=== PATIENT | female | born 1975 | race Caucasian/White ===

== ENCOUNTER 2017-04-17 19:32 | Emergency (ER) | payer OTHER ==
[~2017-04-17] VITALS: Ht 152.4 cm; Wt 71.7 kg
[2017-04-17 19:37] VITALS: Ht 152.4 cm; Wt 71.7 kg
[2017-04-17 22:56] VITALS: BP 120/70
== END 2017-04-17 22:56 | disposition home or self-care (01) ==
LOC: ED 19:32
DX: R10.10 Upper abdominal pain, unspecified (principal); R11.10 Vomiting, unspecified; R19.7 Diarrhea, unspecified; E11.9 Type 2 diabetes mellitus without complications
CPT/HCPCS: Q0162